=== PATIENT | male | born 1990 | race Caucasian/White ===

== ENCOUNTER → 2021-02-27 15:48 | Outpatient (CLI) | payer OTHER, SELFPAY ==
--- NOTE | 2021-02-27 | DI.US.S_ITS ---
PROCEDURE: US ABDOMEN LIMITED INDICATIONS: ELEVATED LFT'S TECHNIQUE: Real-time focused scanning was performed of the abdomen, with image documentation. COMPARISON: None. FINDINGS: The liver demonstrates normal size. The liver demonstrates generalized moderately increased echogenicity. This decreases ultrasound sensitivity for detection of hepatic masses. No findings of gallstones or sludge are seen. The gallbladder wall is not thickened, measuring 3 mm or less. There is a 3 mm gallbladder wall polyp seen. No specific pericholecystic fluid is seen. The sonographic Rosario sign is negative. The biliary tree is poorly seen, yet it does not appear dilated at 3 mm. The pancreas is not well seen. Overall scan quality is limited by bowel gas. IMPRESSION: The liver demonstrates increased echogenicity. This finding is nonspecific, yet it is most commonly attributed to fatty infiltration. The gallbladder demonstrates a normal sonographic appearance. No biliary dilatation is seen. Dictated by: Edwin Sebastian M.D. on 02/27/2021 at 17:11 Approved by: Edwin Sebastian M.D. on 02/27/2021 at 17:12
== END ==
PROVIDERS: PCP Physician Assistant; Referring Provider Physician Assistant; Visit Provider Physician Assistant
DX: R94.5 Abnormal results of liver function studies (principal)
CPT/HCPCS: 76705

== ENCOUNTER → 2021-02-28 16:01 | Outpatient (CLI) | payer OTHER, SELFPAY ==
[2021-02-28 17:09] LABS: Iron 58 ug/dL (49-181)
[2021-02-28 17:20] LABS: Percent Iron Saturation 19 % (20-50); Total Iron Binding Capacity 307 ug/dL (261-462)
[2021-02-28 17:28] LABS: Alanine Aminotransferase 119 IU/L (<50); Albumin 4.5 g/dL (3.5-5.0); Albumin Globulin Ratio 1.5 (1.0-2.8); Alkaline Phosphatase 110 U/L (38-126); Aspartate Aminotransferase 66 IU/L (17-59); BUN Creatinine Ratio 9.7 (6-22); Bilirubin Total 0.7 mg/dL (0.2-1.3); Blood Urea Nitrogen 9 mg/dL (9-20); Calcium 9.7 mg/dL (8.4-10.2); Carbon Dioxide 25 mmol/L (22-32); Chloride 109 mmol/L (98-107); Estimated Glomerular Filt Rate > 60.0 mL/min (>60); Globulin 3.1 g/dL (1.7-4.1); Glucose 101 mg/dL (70-100); HEMOLYSIS 19 (0-50); Potassium 4.1 mmol/L (3.4-5.1); Sodium 143 mmol/L (137-145); Total Protein 7.6 g/dL (6.3-8.2)
[2021-02-28 18:08] LABS: Ferritin 232 ng/mL (18-464)
== END ==
PROVIDERS: PCP Physician Assistant; Referring Provider Physician Assistant; Visit Provider Physician Assistant
DX: R94.5 Abnormal results of liver function studies (principal); R79.0 Abnormal level of blood mineral
CPT/HCPCS: 36415; 80053; 81256; 82728; 83540; 83550

== ENCOUNTER → 2021-03-07 15:36 | Outpatient (CLI) | payer BC, SELFPAY ==
[2021-03-07 17:11] LABS: Alanine Aminotransferase 120 IU/L (<50); Albumin 4.7 g/dL (3.5-5.0); Albumin Globulin Ratio 1.4 (1.0-2.8); Alkaline Phosphatase 107 U/L (38-126); Aspartate Aminotransferase 60 IU/L (17-59); BUN Creatinine Ratio 10.3 (6-22); Bilirubin Total 0.7 mg/dL (0.2-1.3); Blood Urea Nitrogen 9 mg/dL (9-20); Calcium 9.7 mg/dL (8.4-10.2); Carbon Dioxide 26 mmol/L (22-32); Chloride 108 mmol/L (98-107); Estimated Glomerular Filt Rate > 60.0 mL/min (>60); Globulin 3.4 g/dL (1.7-4.1); Glucose 107 mg/dL (70-100); HEMOLYSIS 19 (0-50); Sodium 146 mmol/L (137-145); Total Protein 8.1 g/dL (6.3-8.2)
== END ==
PROVIDERS: PCP Physician Assistant; Referring Provider Physician Assistant; Visit Provider Physician Assistant
DX: R94.5 Abnormal results of liver function studies (principal)
CPT/HCPCS: 36415; 80053

== ENCOUNTER → 2021-05-30 15:17 | Outpatient (CLI) | payer BC, SELFPAY ==
[2021-05-30 17:35] LABS: Alanine Aminotransferase 108 IU/L (<50); Albumin 4.6 g/dL (3.5-5.0); Albumin Globulin Ratio 1.4 (1.0-2.8); Alkaline Phosphatase 95 U/L (38-126); Aspartate Aminotransferase 53 IU/L (17-59); Bilirubin Total 0.7 mg/dL (0.2-1.3); Bilirubin Unconjugated 0.7 mg/dL (0.0-1.1); Globulin 3.3 g/dL (1.7-4.1); HEMOLYSIS < 15 (0-50); Total Protein 7.9 g/dL (6.3-8.2)
[2021-05-30 18:50] LABS: Hepatitis B Surface Antigen NEGATIVE s/c (NEGATIVE)
[2021-05-31 06:04] LABS: Hepatitis B Core Antibody Negative (Negative)
[2021-05-31 08:14] LABS: Alpha 1 Anti Trypsin 152 mg/dL (95-164); Ceruloplasmin 23.9 mg/dL (16.0-31.0); Immunoglobulin G, Quantitative 1472 mg/dL (603-1613); Immunoglobulin M, Quantitative 45 mg/dL (20-172)
[2021-05-31 18:41] LABS: Tissue Transglutaminase IgG 3 U/mL (0-5)
[2021-06-01 14:01] LABS: ANA Screen, IFA Negative (.)
[2021-06-01 14:08] LABS: Anti Mitochondrial ABY IGG <20.0 Units (0.0-20.0); Smooth Muscle Antibody 8 Units (0-19)
[2021-06-02 15:55] LABS: Tissue Transglutaminase IgA <2 U/mL (0-3)
== END ==
PROVIDERS: PCP Physician Assistant; Referring Provider Internal Medicine Gastroenterology; Visit Provider Internal Medicine Gastroenterology
DX: R94.5 Abnormal results of liver function studies (principal)
CPT/HCPCS: 36415; 80076; 82103; 82390; 82784; 83516; 86038; 86704; 87340